=== PATIENT | female | born 1950 | race Caucasian/White ===

== ENCOUNTER 2016-09-13 10:06 | Inpatient (IN) | payer MEDICARE, OTHER ==
[~2016-09-13] VITALS: Ht 171.4 cm; Wt 139.9 kg
--- NOTE | ~2016-09-13 | HP ---
ADMIT: 09/13/2016 RM/LOC: [facility] MR#: [id number] [address] [facility] [address] [place] [id number] JEOVANY CRISTINA Rodriguez [address] [place] [address] Pre-OP History and Physical SEX: F AGE: 66 : 1950 DATE OF SERVICE: CHIEF COMPLAINT: Right knee pain. HISTORY OF PRESENT ILLNESS: The patient is a 66-year-old female, we have done a left total knee arthroplasty on her in the past. Her right knee is starting to bother her more and she is getting increasing pain here. We have treated conservatively in the past with anti-inflammatory medications, couple of injections. Really is not working for her any more, she is having continued increasing pain interfering with her daily activities and with any length of walking. At this time, she would like to proceed with a right total knee arthroplasty. PAST MEDICAL HISTORY: Significant for: 1. Hypertension. 2. Sleep apnea. 3. Hyperlipidemia. 4. Degenerative joint disease. 5. Carotid artery stenosis. CURRENT MEDICATIONS: 1. Aleve. 2. Hydrochlorothiazide. 3. QC Senna. ALLERGIES: TORADOL. SOCIAL HISTORY: The patient denies alcohol or tobacco use at this time. REVIEW OF SYSTEMS: Noncontributory. PHYSICAL EXAMINATION: HEENT: As per Dr. Yan's preoperative medical evaluation. HEART: As per Dr. Yan's preoperative medical evaluation. LUNGS: As per Dr. Yan's preoperative medical evaluation. ABDOMEN: As per Dr. Yan's preoperative medical evaluation. EXTREMITIES: Examination of the right knee; large knee, difficult as she has much way of an effusion. She has tenderness to palpation in the parapatellar region lateral joint line little bit medially. Range of motion close to 0 degrees of extension, flexion about 110 to 115 degrees. She has a little crepitus knee range of motion. No gross ligamentous instability. Otherwise, distally neurovascularly intact. ADMIT: 09/13/2016 RM/LOC: [facility] MR#: [id number] [address] [address] CRISTINA THAYER [address] [place] [address] Pre-OP History and Physical SEX: F AGE: 66 : 1950 IMAGING: X-rays show almost complete loss of lateral joint space, particularly on the 45 degree flexion view. She has arthritis to a lesser degree in the medial compartment and patellofemoral joint. Does have a small osteophyte formation. No other bony lesions noted. ASSESSMENT: Right knee degenerative joint disease. PLAN: At this point, we discussed further treatment options. She would like to proceed with a right total knee arthroplasty. The procedure as well as risks and benefits were discussed with her at length. Questions were answered, she has agreed to proceed at this point. She has seen Dr. Yan for preoperative medical clearance as well. Mynor Castillo MD/ natasha JOB #: [id number] CC: Mynor Castillo MD, Attending Physician Rodger Yan MD, Family Physician
[~2016-09-13 10:06] MED LIST: HABITROL DPS21 MG TP; HYDRODIURIL-DPS25 MG PO; MILK OF MAGNESI10 ML PO; OXY IR DPS5 MG PO; SENOKOT S1 TAB PO; TYLENOL DPS325 MG PO; TYLENOL EXTRA500 M1 PO; ULTRAM DPS50 MG PO; XARELTO10 MG PO
--- NOTE | 2016-09-15 12:17 | OR ---
ADMIT: 09/13/2016 RM/LOC: 529 [facility] MR#: [id number] ACC#: [id number] [address] [address] OSCAR THAYERORION Rodriguez [address] [place] [address] Operative/Delivery Room Report SEX: F AGE: 66 : 1950 SURGERY DATE: 09/13/2016 SURGEON: Mynor Castillo MD PREOPERATIVE DIAGNOSIS: Right knee degenerative joint disease. POSTOPERATIVE DIAGNOSIS: Right knee degenerative joint disease. PROCEDURE: Right total knee arthroplasty with Exparel intra-articular knee block. CUSTOMER COUNTER REPRESENTATIVE: NGA Allison. ANESTHESIA: Spinal. ESTIMATED BLOOD LOSS: 50 mL. TOTAL TOURNIQUET TIME: 88 minutes. COMPLICATIONS: None. CONDITION: Stable to recovery room. IMPLANTS USED: We used a DePuy Sigma total knee arthroplasty system posterior stabilized fixed bearing tibial tray. We used a size 4 femoral component, a size 4 tibial tray, a 38 mm patellar button and a 15 mm tibial insert. Two batches of regular set cement. INDICATIONS: The patient is a 66-year-old female with longstanding right knee pain and degenerative joint disease. She has had a left total knee arthroplasty done in the past and has done well with this. At this point, she has failed conservative treatment including activity modification, anti- inflammatory medications, injections. At this time, she would like to proceed with a right total knee arthroplasty as her pain is interfering with her daily activities. PROCEDURE IN DETAIL: After informed consent was obtained, the patient taken to the operating room, placed on the operative table in supine position. The patient was then placed in a seated position. A spinal anesthetic was administered. After adequate spinal anesthesia, the patient was returned supine, tourniquet placed on right upper thigh and the right lower extremity was prepped and draped in usual sterile fashion. We then exsanguinated the right lower extremity, inflated the tourniquet to 300 mmHg. We then made a midline incision through the skin and subcutaneous tissues making a bit of a medial flap here. We then entered the knee joint through a medial parapatellar incision. Once this was completed, retractors were placed proximally and we excised the suprapatellar fat and synovitis here. Attention was directed then distally and performed a medial release off the proximal tibia using Bovie electrocautery and a Swann elevator. Once this was completed, ADMIT: 09/13/2016 RM/LOC: 529 [facility] MR#: [id number] [address] [address] CRISTINA THAYER [address] [place] [address] Operative/Delivery Room Report SEX: F AGE: 66 : 1950 the patella was everted, knee flexed, and the infrapatellar fat pad was excised. Medial and lateral retractors were then placed. The drill for the intramedullary guide was then placed into the distal femur. The intramedullary guide was then placed and pinned, set to remove 12 mm of distal bone and 5 degrees of valgus. Once this was pinned in position, our distal femoral cut was then performed. Once this was completed, placed the tibial cutting guide. Once this was noted to be in good position, lined up parallel to the tibial crest and in line with the 2nd ray. We pinned this and made our tibial cut. Once this was completed, the knee was then put in extension through a 10 mm extension block. This was actually fairly tight here. We elected to remove some additional tibia at this point. The knee was then flexed, tibial cutting guide was then replaced. We removed an additional, about 2 mm of proximal tibia. Once this was completed, the 10 mm extension block was replaced, noted to be good full extension, good stability here. Once this was completed, the patella was then addressed. We set the patella cutting guide to remove 9.5 mm of patella, clamped the patella, everted the patella, and made our patellar cut. This sized to a size 38. Placed a template for the 38 mm patellar button on the patella and drilled the lugs for this. Once this was completed, the knee was then flexed back up. The femoral sizing guide was then placed in 3 degrees external rotation pin and sized to a size 4. We placed the size four 4 in 1 cutting block onto the distal femur, moved this anteriorly 2 mm and pinned this into position. Once this was pinned, we made our anterior, posterior, and chamfer cuts at this point. A size 4 box cutting guide was then placed, pinned into position. Our box cut was then performed. Once this was all completed, we then trialed the knee with a size 4 femoral component, size 4 tibial tray with a 10 mm insert and 38 mm patellar button. We did have a bit of hyperextension and a little bit of laxity here. We then trialed with a 12.5 as well as a 15. The 15 was actually probably the best fit with good full extension, good flexion, good stability, good tracking of the patella. Once this was completed, the trial components were then removed. Medial, lateral, and popliteal retractors were then placed. Of note, prior to removing the femoral component, we did drill the lugs for the femoral component. The medial and lateral popliteal retractors were then placed. The patella was sized to a size 4. The size 4 tray was then placed onto the proximal tibia, pinned into position. We then prepared the proximal tibia using the reamer, followed by the keel punch. The tibial tray was then removed. The knee was then brought back into extension, railway yard assistant was placed. We made sure we had everything cleaned up well at this point. I copiously irrigated the knee and then injected the posterior, medial, and lateral capsules using Exparel without Toradol since she is allergic to Toradol. Once this was completed, the knee was then flexed back up. Medial, lateral, and popliteal retractors were placed. The components were opened on the back table to include a size 4 femoral component, size 4 tibial tray, and a 38 mm patellar button. We then began copiously irrigating the raw cancellous bony ends cleaning this up thoroughly and drying these. While this was being done, cement was being mixed on the back table. Once the cement was ready, we finger packed the cement onto the proximal tibia and into the keel hole. We then placed the tibial tray, impacted this into position ADMIT: 09/13/2016 RM/LOC: 529 [facility] MR#: [id number] [address] [address] JEOVANYCRISTINA [address] [place] [address] Operative/Delivery Room Report SEX: F AGE: 66 : 1950 removing excess cement using a Winchester elevator. Once this was completed, the popliteal retractor was removed. Cement was placed onto the distal femur, placed 2 small dabs on the femoral component on the posterior condyle. The femoral component was then placed onto the distal femur and impacted into position. Once this was fully seated, the excess cement was removed once again using Winchester elevator. We then placed a 15 mm spacer to squeeze things down here. Then we put the leg in full extension with the heel on a pad on the table. We then placed cement onto the patella. We placed a 38 mm patellar button in place and patellar clamp here. Once again, the excess cement was removed using a Winchester elevator. Once this was completed, we then trialed the knee once again. Once the cement was cured, there was good full extension, excellent flexion, good tracking of the patella, and good stability. We copiously irrigated the knee once again. Removed the trial tibial insert. Washed out the tray copiously with pulse lavage. We then elected to use a 15 mm tibial insert, this was then opened. We placed this onto the tibial tray, impacted, and locked this into position into the tibial tray. Once this was completed, we took the knee through range of motion one final time. Good full extension, flexion 120 degrees or so. Good tracking of the patella and good stability. The knee was once again copiously irrigated at this point. Medium Hemovac drain was then placed. The medial parapatellar incision was then reapproximated using #1 Vicryl in a [id number] fashion. Subcutaneous tissues were irrigated one final time. Subcutaneous tissues were then closed using 2-0 Vicryl in simple interrupted fashion and the skin with skin blanche. Prior to closing the skin, we then injected the remainder of the Exparel in the subcutaneous tissues. Once again, this was without Toradol as she has an allergy to this. Once the skin was closed with skin blanche, a sterile compressive dressing was applied consisting of Xeroform, plain gauze, ABDs, Webril, Tavo wrap from foot to the thigh. The patient was then transferred to recovery room in stable condition. Mynor Castillo MD/ natasha JOB #: [id number] CC: Mynor Castillo MD, Attending Physician Rodger Yan MD, Family Physician
--- NOTE | 2016-09-20 07:47 | CO ---
ADMIT: 09/13/2016 RM/LOC: [facility] MR#: [id number] 2620 [facility] [address] [place] [id number] MARY THAYER [address] [place] [address] Consultation Report SEX: F AGE: 66 : 1950 DATE OF CONSULTATION: 09/01/2016 ATTENDING PHYSICIAN: Mynor Castillo MD CONSULTING PHYSICIAN: Rodger Yan MD CHIEF COMPLAINT: Preoperative evaluation facing right total knee arthroplasty with Dr. Castillo on 09/13. HISTORY OF PRESENT ILLNESS: Mary is a very nice 66-year-old woman with somewhat complicated past history as outlined below. She had increasing problems over the last years with both knees and in fact had a left total knee arthroplasty with Dr. Castillo back in 2012 and got along well with that. She has had increasing pain and instability in her right knee, and Dr. Castillo and she have come to the conclusion that she should have that knee replaced as well. She is anxious to get that done as it is interfering with her life, and we were asked to see her for preoperative evaluation. She has not been recently ill. She has had no problems with anesthesia with her previous operations. She was also followed by [facility] and was last seen in June 2016. They had no problem with her proceeding with her orthopedic procedures. PAST MEDICAL HISTORY: She denies any serious childhood illnesses. She carries a diagnoses of mild coronary artery disease and peripheral vascular disease, hyperlipidemia, systemic hypertension, morbid obesity, diffuse osteoarthritis, ongoing tobacco abuse, chronic venous stasis of the lower extremities. PAST SURGICAL HISTORY: Her previous operations include the right total knee arthroplasty, total abdominal hysterectomy with unilateral salpingo- oophorectomy and incidental appendectomy years ago, previous cholecystectomy, rotator cuff repair, hammertoe surgery, and bilateral lower extremity vein stripping. FAMILY HISTORY: Positive for glaucoma, coronary artery disease, hypertension, osteoarthritis, and various kinds of cancer, as well as Alzheimer's dementia. SOCIAL HISTORY: She continues to smoke a pack of cigarettes per day and has no interest in stopping. She does not use alcohol. 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 She is and her children are attentive to her. She does have poor exercise habits. REVIEW OF SYSTEMS: Times 10-points is negative. She has had no recent eye or dental problems. She denies any ominous chest pain or difficulty breathing. She states bladder and bowel function has been normal. She has had minimal swelling of the lower extremities and that is chronic. She has had no history for neurologic or psychiatric illness. Remainder of the review of systems is negative. PHYSICAL EXAMINATION: GENERAL: Today, she is alert, in good humor. No distress. ADMIT: 09/13/2016 RM/LOC: [facility] MR#: [id number] [address] [address] MARY THAYER [address] [place] [address] Consultation Report SEX: F AGE: 66 : 1950 VITAL SIGNS: Blood pressure 122/70, pulse of 62, O2 saturation of 95% on room air. BMI of 44.8. She is afebrile. HEENT: Negative-she has a full upper and partial lower plate. She has mild nicotine mucositis of the oral mucosa. NECK: Supple. No obvious bruits. LUNGS: Clear to auscultation but with diminished breath sounds with a thick chest wall. CARDIAC: Shows a regular rhythm with distant sounds. I do not detect any obvious murmur. ABDOMEN: Obese. No obvious masses, tenderness, or organomegaly. EXTREMITIES: Lower extremities show the obvious arthritic changes of her right knee. Scar on the left knee looks good. She has a trace of lower extremity edema. She has palpable pulses in both feet. NEUROLOGIC: Essentially normal. IMPRESSION: 1. Increasingly severe degenerative arthritis of the right knee-facing right total knee arthroplasty. 2. Known "mild" coronary artery disease by heart catheterization, 2000. 3. Hyperlipidemia. 4. Systemic hypertension. 5. Diffuse osteoarthritis. 6. Morbid obesity. 7. Ongoing tobacco abuse. 8. Status post multiple operations as outlined above. PLAN: She will be contacting [facility] next week. We will await the laboratories there. We did check a hemoglobin A1c today and it is 5.9%, and her lipid panel shows a total cholesterol/HDL/LDL/triglycerides of 161/37/ 98/128 respectively. Assuming her laboratory studies from the hospital are good, then I think it is fine to proceed with this operation. I anticipate she will do well. Rodger Yan MD/ natasha JOB #: [id number] CC: Mynor Castillo MD, Attending Physician Rodger Yan MD, Family Physician
--- NOTE | 2016-09-26 07:29 | DS ---
ADMIT: 09/13/2016 RM/LOC: 529 [facility] MR#: [id number] [facility]#: [id number] 26[address] [facility] [address] [place], [place] [address] OSCAR THAYERORION Rodriguez [address] [place] [address] General Discharge Summary SEX: F AGE: 66 : 1950 ADMISSION DATE: 09/13/2016 DISCHARGE DATE: 09/16/2016 REASON FOR ADMISSION: Elective right total knee arthroplasty after failing conservative treatment. PREOPERATIVE DIAGNOSIS: Right knee degenerative joint disease. POSTOPERATIVE DIAGNOSIS: Right knee degenerative joint disease. PROCEDURE PERFORMED: Right total knee arthroplasty. SURGEON: Dr. Mynor Castillo. SUBSTATION ELECTRICIAN: NGA Allison ANESTHESIA: Spinal. ESTIMATED BLOOD LOSS: 50 mL. COMPLICATIONS: None. ACTIVE MEDICAL PROBLEMS: 1. Mild coronary artery disease and peripheral vascular disease. 2. Hyperlipidemia. 3. Systemic hypertension. 4. Morbid obesity. 5. Diffuse osteoarthritis. 6. Ongoing tobacco use. 7. Chronic venous stasis of the lower extremities. HOSPITAL COURSE: The patient was admitted on 09/13/2016 for elective right total knee arthroplasty done successfully without any complications by Dr. Castillo. She tolerated the procedure well. Postoperatively, she did well with pain control with use of intraoperative Exparel and postoperative oral analgesics. She remained hemodynamically stable and did not require blood transfusion. By postoperative day #3, she was safe and participated well in physical therapy. She was stable and ready for discharge to a prison facility with plans for outpatient physical therapy. DISCHARGE MEDICATIONS: 1. Celebrex 200 mg twice a day. 2. HydroDIURIL 25 mg daily. 3. Klor-Con 20 mEq daily. 4. MiraLax 17 g daily. 5. Senokot 8.6 mg daily. 6. Tylenol 325 mg 1 to 2 tablets every 6 hours as needed. 7. Ultram 50 mg 1 to 2 tablets every 6 hours as needed for pain. 8. Xarelto 10 mg daily. ADMIT: 09/13/2016 RM/LOC: 529 [facility] MR#: [id number] [facility] [address] [place], [place] [address] CRISTINA THAYER [address] [place] [address] General Discharge Summary SEX: F AGE: 66 : 1950 9. Habitrol 21 mg daily. 10.Benadryl 25 mg every 6 hours as needed. 11.Cepacol one lozenge every hour as needed. 12.Compazine 10 mg every 6 hours as needed. 13.Dulcolax 5 mg twice a day as needed. 14.Flexeril 10 mg three times a day as needed. 15.Maalox 30 mL every 6 hours as needed. 16.Milk of magnesia 10 mL daily as needed. 17.Oxycodone IR 5 mg one to three tablets every 4 hours as needed for breakthrough pain. 18.Surfak 240 mg two times a day as needed. 19.Tums 500 mg every 2 hours as needed. 20.Zofran 4 mg every 4 hours as needed. DISCHARGE INSTRUCTIONS: The patient was discharged to prison facility with plans for outpatient physical therapy per total knee arthroplasty protocol. Follow up in the orthopedic office in two weeks for wound check, and in six weeks with x-ray. Follow up with primary care as directed. NGA Moreno / Mynor Castillo MD / santosl JOB #: [id number] CC: Mynor Castillo MD, Attending Physician Rodger Yan MD, Family Physician
[2017-01-27] MEDS ORDERED: HYDROCHLOROTHIA25 MG PO (17:34)
[2017-01-27] MEDS ORDERED: SENOKOT DPS8.6 MG PO (17:34)
[2017-01-27] MEDS ORDERED: TYLENOL EXTRA500 M1 PO (17:35)
[2017-01-27] MEDS ORDERED: FLEXERIL-DPS10 MG PO (17:35)
[2017-01-27] MEDS ORDERED: ULTRAM DPS50 MG PO (17:35)
[2017-01-27] MEDS ORDERED: SENOKOT S1 TAB PO (17:35)
[2017-01-27] MEDS ORDERED: MIRALAX PACKET17 GM PO (17:36)
[2017-01-27] MEDS ORDERED: XARELTO10 MG PO (17:37)
[2017-01-27] MEDS ORDERED: NICOTINE PATCH1 EAC1 TD (17:37)
[2017-01-27] MEDS ORDERED: TYLENOL DPS325 MG PO ×2 (17:37→17:40)
[2017-01-27] MEDS ORDERED: CEPACOL SORE T1 EACH PO (17:38)
[2017-01-27] MEDS ORDERED: COMPAZINE10 MG PO (17:38)
[2017-01-27] MEDS ORDERED: COLACE-DPS100 MG PO (17:38)
[2017-01-27] MEDS ORDERED: BENADRYL-DPS25 MG PO (17:38)
[2017-01-27] MEDS ORDERED: DULCOLAX-DPS5 MG PO (17:39)
[2017-01-27] MEDS ORDERED: MAALOX DPS30 ML PO (17:39)
[2017-01-27] MEDS ORDERED: MILK OF MAGNESI10 ML PO (17:39)
[2017-01-27] MEDS ORDERED: OXY IR DPS5 MG PO (17:39)
[2017-01-27] MEDS ORDERED: TUMS DPS500 MG PO (17:40)
== END 2016-09-16 11:40 | DRG 470 ==
LOC: WOR 10:06 → 5MS 10:06
PROVIDERS: ADMIT Orthopaedic Surgery
PROC: 0SRC0J9 Replacement of Right Knee Joint with Synthetic Substitute, Cemented, Open Approach (ICD-10-PCS; principal; 2016-09-13)
DX: M17.11 Unilateral primary osteoarthritis, right knee (principal); J44.9 Chronic obstructive pulmonary disease, unspecified; Z68.42 Body mass index [BMI] 45.0-49.9, adult; E66.01 Morbid (severe) obesity due to excess calories; I10 Essential (primary) hypertension; E78.5 Hyperlipidemia, unspecified; I65.29 Occlusion and stenosis of unspecified carotid artery; I25.10 Atherosclerotic heart disease of native coronary artery without angina pectoris; I73.9 Peripheral vascular disease, unspecified; F17.210 Nicotine dependence, cigarettes, uncomplicated; I87.8 Other specified disorders of veins; Z82.49 Family history of ischemic heart disease and other diseases of the circulatory system; Z96.652 Presence of left artificial knee joint

== ENCOUNTER → 2016-10-17 | Outpatient (CLI) | payer MEDICARE, OTHER ==
[~2016-10-17] MED LIST changes: +BENADRYL-DPS25 MG PO; +CEPACOL SORE T1 EACH PO; +COLACE-DPS100 MG PO; +COMPAZINE10 MG PO; +DULCOLAX-DPS5 MG PO; +FLEXERIL-DPS10 MG PO; +HYDROCHLOROTHIA25 MG PO; +MAALOX DPS30 ML PO; +MIRALAX PACKET17 GM PO; +NICOTINE PATCH1 EAC1 TD; +SENOKOT DPS8.6 MG PO; +TUMS DPS500 MG PO
== END | disposition home or self-care (01) ==
LOC: RAD.S 13:26
DX: N60.01 Solitary cyst of right breast (principal)